=== PATIENT | male | born 1935 | race Two or more races ===

== ENCOUNTER 2023-08-19 20:09 | Emergency (ER) | payer MEDICARE, OTHER ==
[~2023-08-19] VITALS: Ht 162.6 cm; Wt 67.3 kg
[~2023-08-19 20:09] MED LIST: AMLO-258 PO; AMOX1TAB16 PO; IPRA4AER IH; PRED-554 PO
[2023-08-19 20:12] VITALS: TEMP 98.8
[2023-08-19 20:54] LABS: EOSINOPHILS % (AUTO) 2.6 % (1.0-6.0); HEMATOCRIT 37.5 % (41-53); HEMOGLOBIN 12.3 g/dL (13.5-17.5); LYMPHOCYTES # (AUTO) 2.7 K/uL (1.0-4.8); LYMPHOCYTES % (AUTO) 40.4 % (22.0-44.0); MEAN CORPUSCULAR HGB CONC 32.8 G/dL (31.0-37.0); MEAN CORPUSCULAR VOLUME 95 fL (80-100); MONOCYTES # (AUTO) 0.7 K/uL (0.1-1.0); MONOCYTES % (AUTO) 9.7 % (2.0-9.0); NEUTROPHILS # (AUTO) 3.1 K/uL (1.8-7.7); NEUTROPHILS % (AUTO) 46.3 % (40.0-70.0); PLATELET COUNT (AUTO) 297 K/uL (150-450); RED BLOOD CELL COUNT(AUTO) 3.96 MIL/uL (4.50-5.90); RED CELL DISTRIBUTION WIDTH 15.3 % (11.5-14.5); WHITE BLOOD COUNT (AUTO) 6.8 K/uL (4.5-11.0)
[2023-08-19 21:05] LABS: CALCIUM, TOTAL 7.9 mg/dL (8.8-10.5); CREATININE 1.17 mg/dL (0.60-1.30); POTASSIUM 4.1 mmol/L (3.5-5.1)
[2023-08-19 21:06] LABS: PROTHROMBIN TIME 10.6 SEC (9.4-11.6)
[2023-08-19 21:12] LABS: TROPONIN I-HIGH SENSITIVITY 4 ng/L (<76)
[2023-08-19 21:29] LABS: ALBUMIN 3.3 g/dL (3.4-5.0); BILIRUBIN,TOTAL 0.4 mg/dL (0.1-1.0); TOTAL PROTEIN, SERUM 6.7 g/dL (6.4-8.2)
[2023-08-19] MEDS: SODIUM CHLORIDE 0.9% 1,000 ML IV ONE (22:47)
[2023-08-20] VITALS: BP 155/93; PULSE 74; RESP 16
[2023-08-20 00:05] LABS: ALCOHOL, URINE DRUG SCREEN NEGATIVE (NEGATIVE); AMPHET/METH SCREEN,URINE NEGATIVE (NEGATIVE); BARBITURATE SCREEN, URINE NEGATIVE (NEGATIVE); BENZODIAZEPINES SCREEN,URINE NEGATIVE (NEGATIVE); CANNABINOID SCREEN,URINE NEGATIVE (NEGATIVE); COCAINE SCREEN,URINE NEGATIVE (NEGATIVE); METHADONE SCREEN, URINE NEGATIVE (NEGATIVE); OPIATE SCREEN,URINE NEGATIVE (NEGATIVE); PHENCYCLIDINE SCREEN,URINE NEGATIVE (NEGATIVE)
[2023-08-20 00:16] LABS: PH,URINE DRUG SCREEN 5.5 (5.0-8.0)
[2023-08-20 00:27] LABS: APPEARANCE,URINE CLEAR (CLEAR); BILIRUBIN,URINE NEGATIVE (NEGATIVE); COLOR,URINE COLORLESS (YELLOW); GLUCOSE, URINE (UA) NEGATIVE (NEGATIVE); KETONES,URINE NEGATIVE (NEGATIVE); LEUKOCYTE ESTERASE ,URINE NEGATIVE (NEGATIVE); NITRATE,URINE NEGATIVE (NEGATIVE); OCCULT BLOOD,URINE NEGATIVE (NEGATIVE); PH,URINE 5.5 (5.0-8.0); PROTEIN,URINE NEGATIVE (NEGATIVE); UROBILINOGEN,URINE <=1.0 mg/dL (<=1.0)
[2023-08-20] MEDS ORDERED: AMLO-257 PO (00:36)
[2023-08-20] MEDS: AmLODIPine BESYLATE 5 MG TABLET PO ONE (00:42)
== END 2023-08-20 01:42 | disposition home or self-care (01) ==
LOC: EMS 22:09
DX: I16.0 Hypertensive urgency (principal); E86.0 Dehydration
CPT/HCPCS: 99291; 96360; 71045; 80053; 82550; 83880; 84484; 85025; 85610; 85730; 36415; 93005; 80307; 81003; J7030

== ENCOUNTER 2024-02-25 11:53 | Inpatient (IN) | payer MEDICARE, OTHER ==
[~2024-02-25] VITALS: Ht 165.1 cm; Wt 63.0 kg
[~2024-02-25 11:53] MED LIST changes: +AMLO-257 PO; +AMOX-457 PO; -AMOX1TAB16 PO
[2024-02-25 12:53] LABS: BASOPHILS % (AUTO) 0.7 % (0.0-2.0); EOSINOPHILS % (AUTO) 1.2 % (1.0-6.0); HEMATOCRIT 27.3 % (41-53); HEMOGLOBIN 9.4 g/dL (13.5-17.5); LYMPHOCYTES # (AUTO) 1.3 K/uL (1.0-4.8); LYMPHOCYTES % (AUTO) 13.2 % (22.0-44.0); MEAN CORPUSCULAR HEMOGLOBIN 32.7 pg (26.0-34.0); MEAN CORPUSCULAR HGB CONC 34.3 G/dL (31.0-37.0); MEAN CORPUSCULAR VOLUME 96 fL (80-100); MONOCYTES # (AUTO) 0.9 K/uL (0.1-1.0); MONOCYTES % (AUTO) 8.9 % (2.0-9.0); NEUTROPHILS # (AUTO) 7.7 K/uL (1.8-7.7); PLATELET COUNT (AUTO) 340 K/uL (150-450); RED BLOOD CELL COUNT(AUTO) 2.86 MIL/uL (4.50-5.90); WHITE BLOOD COUNT (AUTO) 10.1 K/uL (4.5-11.0)
[2024-02-25 13:05] LABS: B-TYPE NATRIURETIC PEPTIDE 126 pg/mL (0-100)
[2024-02-25 13:07] LABS: TROPONIN I-HIGH SENSITIVITY 8 ng/L (<76)
[2024-02-25 13:11] LABS: ALANINE AMINOTRANSFERASE 40 U/L (12-78); ALBUMIN 3.1 g/dL (3.4-5.0); ALKALINE PHOSPHATASE 111 U/L (46-116); ASPARTATE AMINOTRANSFERASE 25 U/L (15-37); BILIRUBIN,TOTAL 0.3 mg/dL (0.1-1.0); CALCIUM, TOTAL 8.1 mg/dL (8.8-10.5); CARBON DIOXIDE 30 mmol/L (22-29); CREATININE 1.26 mg/dL (0.60-1.30); GLOMERULAR FILTR. RATE CALC 54 mL/min (>60); GLUCOSE,RANDOM 112 mg/dL (70-110); LIPASE 47 U/L (16-77); TOTAL PROTEIN, SERUM 6.4 g/dL (6.4-8.2); UREA NITROGEN, BLOOD 18 mg/dL (7-18)
[2024-02-25 13:13] LABS: LACTIC ACID 0.6 mmol/L (0.4-2.0)
[2024-02-25 13:15] LABS: ALCOHOL, BLOOD (SERUM) < 3 mg/dL (0-10)
[2024-02-25 13:16] LABS: ANION GAP 5 mmol/L (8-16); CHLORIDE 90 mmol/L (98-107); POTASSIUM 4.5 mmol/L (3.5-5.1); SODIUM SERUM 125 mmol/L (136-145)
[2024-02-25] MEDS ORDERED: IOHEXOL 350 MG/ML 100 ML VIAL ONE (13:26)
[2024-02-25] MEDS ORDERED: SODIUM CHLORIDE 0.9% 100 ML ONE (13:27)
[2024-02-25] MEDS: MAG HYDROX/ALUMINUM HYD/SIMETH 30 ML SUSPENSION UDCUP PO ONE (13:38)
[2024-02-25] MEDS: KETOROLAC TROMETHAMINE 30 MG/ML VIAL IVP ONE (13:38)
[2024-02-25] MEDS: SODIUM CHLORIDE 0.9% 1,000 ML IV ONE ×2 (13:38→16:26)
[2024-02-25] MEDS: FAMOTIDINE 20 MG/2 ML VIAL IVP ONE (13:39)
[2024-02-25] MEDS: ONDANSETRON HCL 4 MG/2 ML VIAL IVP ONE (13:39)
[2024-02-25] MEDS: HydrALAZINE HCL 20 MG/ML VIAL IVP ONE (13:57)
[2024-02-25 14:54] LABS: APPEARANCE,URINE CLEAR (CLEAR); BILIRUBIN,URINE NEGATIVE (NEGATIVE); COLOR,URINE COLORLESS (YELLOW); GLUCOSE, URINE (UA) NEGATIVE (NEGATIVE); KETONES,URINE NEGATIVE (NEGATIVE); LEUKOCYTE ESTERASE ,URINE NEGATIVE (NEGATIVE); NITRATE,URINE NEGATIVE (NEGATIVE); OCCULT BLOOD,URINE NEGATIVE (NEGATIVE); PROTEIN,URINE NEGATIVE (NEGATIVE); SPECIFIC GRAVITIY, URINE 1.005 (1.003-1.030); UROBILINOGEN,URINE <=1.0 mg/dL (<=1.0)
[2024-02-25 14:55] LABS: BACTERIA,URINE None Seen /HPF (None Seen); RBC,URINE None Seen /HPF (0-2); SQUAMOUS EPITHELIAL CELL,UR None Seen /LPF (None Seen); WBC,URINE None Seen /HPF (0-5)
[2024-02-25] MEDS ORDERED: HydrALAZINE HCL 20 MG/ML VIAL IVP PRN (15:45)
[2024-02-25] MEDS ORDERED: HEPARIN SODIUM,PORCINE 5,000 UNITS/ML VIAL SQ SCH (16:00)
[2024-02-25] MEDS ORDERED: PANTOPRAZOLE SODIUM 40 MG/VIAL IVP SCH (16:00)
[2024-02-25] MEDS: AmLODIPine BESYLATE 10 MG TABLET PO SCH (16:25)
[2024-02-25] MEDS: PANTOPRAZOLE SODIUM 40 MG/VIAL IVP SCH (16:25)
[2024-02-25 21:00] VITALS: BP 124/59; PULSE 64; RESP 18; TEMP 98.2; O2SAT 93
[2024-02-25] MEDS: LOSARTAN POTASSIUM 25 MG TABLET PO SCH (22:43)
[2024-02-25] MEDS: DOCUSATE SODIUM 100 MG CAPSULE PO SCH (22:44)
[2024-02-26 01:19] VITALS: BP 112/54; PULSE 65; RESP 18; TEMP 98; O2SAT 95
[2024-02-26 04:30] VITALS: BP 119/55; PULSE 57; RESP 18; TEMP 98; O2SAT 95
[2024-02-26 06:48] LABS: BASOPHILS % (AUTO) 0.6 % (0.0-2.0); EOSINOPHILS % (AUTO) 1.5 % (1.0-6.0); HEMATOCRIT 23.8 % (41-53); HEMOGLOBIN 8.2 g/dL (13.5-17.5); LYMPHOCYTES # (AUTO) 1.6 K/uL (1.0-4.8); LYMPHOCYTES % (AUTO) 21.8 % (22.0-44.0); MEAN CORPUSCULAR HEMOGLOBIN 33.2 pg (26.0-34.0); MEAN CORPUSCULAR HGB CONC 34.5 G/dL (31.0-37.0); MEAN CORPUSCULAR VOLUME 96 fL (80-100); MONOCYTES # (AUTO) 0.8 K/uL (0.1-1.0); MONOCYTES % (AUTO) 10.2 % (2.0-9.0); NEUTROPHILS % (AUTO) 65.9 % (40.0-70.0); PLATELET COUNT (AUTO) 310 K/uL (150-450); RED BLOOD CELL COUNT(AUTO) 2.48 MIL/uL (4.50-5.90); RED CELL DISTRIBUTION WIDTH 13.9 % (11.5-14.5); WHITE BLOOD COUNT (AUTO) 7.6 K/uL (4.5-11.0)
[2024-02-26 07:03] LABS: CALCIUM, TOTAL 7.7 mg/dL (8.8-10.5); CREATININE 1.3 mg/dL (0.60-1.30); POTASSIUM 4.2 mmol/L (3.5-5.1)
[2024-02-26 08:17] VITALS: BP 148/65; PULSE 67; RESP 16; TEMP 98.4; O2SAT 97
[2024-02-26] MEDS ORDERED: FAMOTIDINE 20 MG TABLET PO SCH (09:00)
[2024-02-26 11:41] VITALS: BP 125/62; PULSE 71; RESP 18; TEMP 98.5; O2SAT 96
[2024-02-26 16:04] VITALS: BP 130/72; PULSE 75; RESP 16; TEMP 98.4; O2SAT 98
[2024-02-26 20:44] VITALS: BP 134/68; PULSE 73; RESP 18; TEMP 97.9; O2SAT 95
[2024-02-27 00:14] VITALS: BP 141/57; PULSE 72; RESP 20; TEMP 97.9; O2SAT 94
[2024-02-27] MEDS: ACETAMINOPHEN 325 MG TABLET PO PRN (04:40)
[2024-02-27 04:42] VITALS: BP 132/65; PULSE 63; RESP 17; TEMP 97.9; O2SAT 96
[2024-02-27 07:34] LABS: BASOPHILS % (AUTO) 1.1 % (0.0-2.0); EOSINOPHILS % (AUTO) 3.8 % (1.0-6.0); HEMATOCRIT 25.5 % (41-53); HEMOGLOBIN 8.8 g/dL (13.5-17.5); LYMPHOCYTES # (AUTO) 1.9 K/uL (1.0-4.8); LYMPHOCYTES % (AUTO) 24.3 % (22.0-44.0); MEAN CORPUSCULAR HEMOGLOBIN 33.3 pg (26.0-34.0); MEAN CORPUSCULAR HGB CONC 34.6 G/dL (31.0-37.0); MEAN CORPUSCULAR VOLUME 96 fL (80-100); MONOCYTES # (AUTO) 0.8 K/uL (0.1-1.0); MONOCYTES % (AUTO) 10.9 % (2.0-9.0); NEUTROPHILS # (AUTO) 4.6 K/uL (1.8-7.7); NEUTROPHILS % (AUTO) 59.9 % (40.0-70.0); PLATELET COUNT (AUTO) 327 K/uL (150-450); RED BLOOD CELL COUNT(AUTO) 2.65 MIL/uL (4.50-5.90); RED CELL DISTRIBUTION WIDTH 14.2 % (11.5-14.5); WHITE BLOOD COUNT (AUTO) 7.7 K/uL (4.5-11.0)
[2024-02-27 07:39] LABS: CALCIUM, TOTAL 7.7 mg/dL (8.8-10.5); CREATININE 1.24 mg/dL (0.60-1.30); POTASSIUM 4.6 mmol/L (3.5-5.1)
[2024-02-27 08:00] VITALS: BP 143/58; PULSE 67; RESP 14; TEMP 98.1; O2SAT 97
[2024-02-27 12:00] VITALS: BP 129/72; PULSE 75; RESP 15; TEMP 98.1; O2SAT 96
[2024-02-27] MEDS ORDERED: AMLO-258 PO (12:29)
[2024-02-27] MEDS ORDERED: PANT-31 PO (12:29)
[2024-02-27] MEDS ORDERED: TAMS0.4C94 PO (12:29)
[2024-02-27] MEDS ORDERED: CEPH-558 PO (12:35)
[2024-02-27] MEDS ORDERED: PHEN-846 PO (12:35)
== END 2024-02-27 14:20 | disposition home or self-care (01) | DRG 392 ==
LOC: EMS 11:53 → EDH 15:48 → 5S 19:31
PROVIDERS: ADMIT Internal Medicine; ATTEND Internal Medicine
DX: K29.70 Gastritis, unspecified, without bleeding (principal); I16.1 Hypertensive emergency; E87.1 Hypo-osmolality and hyponatremia; D64.9 Anemia, unspecified; I10 Essential (primary) hypertension; Z79.899 Other long term (current) drug therapy; K44.9 Diaphragmatic hernia without obstruction or gangrene
CPT/HCPCS: 74177; 76705; 80048; 80076; 81001; 82271; 83605; 83690; 83880; 84484; 85025; 87040; 87086; 93005; 93306; 99285; C9113; G0480; J0360; J1885; J2405; J3490; J7030; J7050